=== PATIENT | female | born 1955 | race Caucasian/White ===

== ENCOUNTER → 2016-09-18 | Outpatient (CLI) | payer BC ==
[~2016-09-18] MED LIST: ACTOS45 MG PO; ALEVE220 M1 PO; ALLEGRA180 MG PO; COLACE100 MG PO; ECOTRIN325 MG PO; EFFEXOR XR150 MG PO; EFFEXOR XR75 MG PO; JANUMET 50-1,01 EACH PO; JANUMET PO; LANTUS SOL100 UNIT/1 SUB-Q; LEVOTHROID (S112 MCG PO; LEVOTHROID (S125 MCG PO; LOPRESSOR25 MG PO; MILK OF MA400 MG/5 M PO; MIRALAX17 GM PO; PERCOCET 5-3251 EACH PO; PRINIVIL OR ZES10 MG PO; VALIUM5 MG PO; ZESTRIL40 MG PO
== END | disposition disaster alternative care site (69) ==
LOC: GBCOE 09-17 14:00
DX: Z12.31 Encounter for screening mammogram for malignant neoplasm of breast (principal)
CPT/HCPCS: G0202